=== PATIENT | female | born 1945 | race Caucasian/White ===

== ENCOUNTER 2022-07-20 11:09 | Emergency (ER) | payer OTHER ==
[~2022-07-20] VITALS: Ht 167.6 cm; Wt 122.5 kg
[2022-07-20 11:14] VITALS: BP_SYST 196
--- NOTE | 2022-07-20 13:14 | NUR ---
Patient to ER bed 04 to gown for evaluation. Side rails up.
--- NOTE | 2022-07-20 13:25 | NUR ---
PT STATES SHE HAS BEEN HAVING EPISODES OF SOB, COLD SWEATS, SHIVERS AND FEELING FAINT AFTER HAVING A NIGHTMARE ON 07/18, ++ANXIETY. REFUSING TO HAVE BP TAKEN ON UPPER ARM DUE TO "IT SQUEEZES TOO TIGHT AND MAKES MY BP TOO HIGH". SPOUSE AT BEDSIDE FOR SUPPORT.
[2022-07-20 14:36] LABS: BASOPHILS % (AUTO) 0.6 % (0.0-2.0); EOSINOPHILS # (AUTO) 0.1 K/uL (0.0-0.4); HEMATOCRIT 42.3 % (36-48); HEMOGLOBIN 13.9 g/dL (12.0-16.0); LYMPHOCYTES # (AUTO) 1.5 K/uL (1.0-5.5); LYMPHOCYTES % (AUTO) 21.5 % (20.5-51.5); MEAN CORPUSCULAR HEMOGLOBIN 29 pg (27-31); MEAN CORPUSCULAR HGB CONC 33 % (32-36); MEAN CORPUSCULAR VOLUME 90 fL (79.0-98.0); MONOCYTES # (AUTO) 0.6 K/uL (0.0-1.0); MONOCYTES % (AUTO) 8.2 % (1.7-9.3); NEUTROPHILS # (AUTO) 4.8 K/uL (1.8-7.7); NEUTROPHILS % (AUTO) 68.7 % (40.0-70.0); PLATELET COUNT (AUTO) 279 K/uL (130-430); RED BLOOD CELL COUNT(AUTO) 4.71 MIL/uL (4.2-6.2); RED CELL DISTRIBUTION WIDTH 14.2 % (9.0-15.0)
[2022-07-20 14:46] LABS: ANION GAP 7 (5-15); CALCIUM 9.4 mg/dL (8.4-11.0); CHLORIDE 103 mmol/L (98-107); CREATININE 0.98 mg/dL (0.55-1.30); GLUCOSE 115 mg/dL (70-99); UREA NITROGEN, BLOOD 21 mg/dL (8-21)
[2022-07-20 14:54] LABS: ALANINE AMINOTRANSFERASE 20 U/L (12-78); ALBUMIN 3.6 g/dL (3.4-4.8); ASPARTATE AMINOTRANSFERASE 22 U/L (10-37); TOTAL BILIRUBIN 0.5 mg/dL (0.0-1.0)
[2022-07-20] MEDS ORDERED: ALPR0.25 PO (15:38)
--- NOTE | 2022-07-20 16:39 | NUR ---
Patient given written and verbal discharge instructions and verbalizes understanding. ER MD discussed with patient the results and treatment provided. Patient in stable condition. ID arm band removed. Rx of XANAX given. Patient educated on pain management and to follow up with PMD. Pain Scale 0/10. Opportunity for questions provided and answered. Medication side effect fact sheet provided.
== END 2022-07-20 16:37 | disposition home or self-care (01) ==
LOC: SED 11:09
DX: R06.02 Shortness of breath (principal); R07.9 Chest pain, unspecified; F41.9 Anxiety disorder, unspecified; Z91.048 Other nonmedicinal substance allergy status; Z79.899 Other long term (current) drug therapy
CPT/HCPCS: 36415; 71045; 80053; 83880; 84484; 85025; 93005; 99285